=== PATIENT | female | born 1950 | race Caucasian/White ===

== ENCOUNTER 2016-10-20 09:00 | Inpatient (IN) | payer MEDICARE, OTHER ==
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
--- NOTE | ~2016-10-20 | HP ---
Unit #: [id number] #: [id number] Patient: ARACELIS ARIAS [id number] [place] [address] [id number] MR#: [id number] NAME: ARACELIS ARIAS. ROOM: P265 Age: 66 Sex: F Admission Date: 10/20/2016 : 1950 Attending Physician: Myke Dong M.D. Admitting Physician: Myke Dong M.D. Primary Care Physician: Primary Care Physician No HISTORY AND PHYSICAL HISTORY OF PRESENT ILLNESS Aracelis is a 66 year old admitted to [address] [place] [address] with psychotic behavior. She is a poor historian so her history is taken from her chart. She has had other admissions to this facility for the same. PAST MEDICAL HISTORY 1. Morbid obesity. 2. High blood pressure. 3. COPD. 4. Chronic pain. 5. History of glaucoma. PAST SURGICAL HISTORY Bilateral eyes. ALLERGIES No known drug allergies. SOCIAL HISTORY Smokes greater than 1 pack per day. Denies alcohol and illicit drug use. FAMILY HISTORY Medically noncontributory. REVIEW OF SYSTEMS She does not answer questions appropriately. There are no reports of nausea, vomiting or diarrhea. She has had no complaints of shortness of breath or chest pain. CURRENT MEDICATIONS 1. Flonase nasal spray. 2. Symbicort 2 puffs b.i.d. 3. Colace 100 mg b.i.d. 4. Nicorette gum p.r.n. 5. Milk of Magnesia p.r.n. 6. Maalox p.r.n. 7. Tylenol p.r.n. 8. Lasix 20 mg daily. 9. Norvasc 10 mg daily. 10. Baclofen 10 mg 1/2 tab t.i.d. p.r.n. 11. Gabapentin 300 mg daily. 12. Mobic 7.5 mg b.i.d. 13. Vitamin D3 2000 units daily. Unit #: [id number] #: [id number] Patient: ARACELIS ARIAS 14. Oxybutynin 5 mg daily. 15. Zyrtec 10 mg daily. PHYSICAL EXAMINATION GENERAL: Alert, morbidly obese, no apparent distress. VITAL SIGNS: Blood pressure 142/90, heart rate 80, respirations 16, temperature 98.6. WEIGHT: 186. HEIGHT: 5 feet 6 inches. SKIN: Warm and dry without rash or lesion. HEENT: Normocephalic. TMs not viewed. Oral and nasal passages clear. Conjunctivae clear. PERRLA. EOMs intact. NECK: Supple without lymphadenopathy or thyromegaly. HEART: Regular rate and rhythm without murmur. LUNGS: Clear. ABDOMEN: Soft, nontender. : Not done. EXTREMITIES: No evidence of cyanosis or clubbing. She has 1+ to 2+ edema bilateral lower extremities. NEUROLOGICAL: Unable to complete extended exam. She does move all extremities without focal deficit. Hand stretcher helper is equal. Gait not observed. IMPRESSION Psychiatric admission. RECOMMENDATIONS PSYCHIATRIC: Per psychiatrist. MEDICAL: 1. See no contraindications to participate in facility's activities. 2. Check BMP. MEDICAL PROGNOSIS Good. MEDICAL CONDITION Stable. Dictated by... Luiza Qiu P.A.-C. for Nirav Lux/jayshree TD: 10/20/2016 16:34 JOB #: [id number] Unit #: [id number] #: [id number] Patient: HUGOARACELIS J HISTORY AND PHYSICAL Page 1 of 1 X Luiza Qiu PA X HISTORY AND PHYSICAL
--- NOTE | ~2016-10-20 | PN ---
Unit #: [id number] #: [id number] Patient: ARACELIS ARIAS [id number] [facility] [address] [place] [address] [id number] MR#: [id number] NAME: ARACELIS ARIAS ROOM: P265 Age: 66 Sex: F Admission Date: 10/20/2016 : 1950 Attending Physician: Myke Dong M.D. Admitting Physician: Myke Dong M.D. Primary Care Physician: Primary Care Physician Reyna HASSAN PROGRESS NOTES DATE 10/22/2016 DISCUSSION The patient is significantly brighter and more calm today. She has received her Risperdal Consta injection and does seem improve though staff reports some ongoing periods of irritability and selective compliance with medication. I have spoken with the patient regarding importance of consistent medication compliance. Dictated by... Myke Dong M.D. CB/jayshree TD: 10/22/2016 17:18 JOB #: [id number] [facility] PROGRESS NOTES Page 1 of 1 X Myke Dong MD X PROGRESS NOTE
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
[~2016-10-20 09:00] MED LIST: BACLOFEN10 MG PO; DEPAKOTE250 MG PO; GABAPENTIN300 M2 PO; HYDROCHLOROTHIA25 MG PO; NORVASC10 MG PO; RISPERDAL3 MG PO
[2016-10-21 09:53] LABS: BASOPHIL# 0.1 X10e3 (0-0.3); BASOPHIL% 1.4 % (0-2.5); EOSINOPHIL# 0.1 X10e3 (0-0.7); EOSINOPHIL% 1.4 % (0.0-7.0); HEMATOCRIT 40.9 % (35.0-45.0); HEMOGLOBIN 13.1 gm/dL (12.0-16.0); LYMPHOCYTE# 3.1 X10e3 (1.0-3.5); LYMPHOCYTE% 37.2 % (17.0-45.0); MEAN CORPUSCULAR HEMOGLOBIN 29.1 PG (28-34); MEAN PLATELET VOLUME 9.7 FL (6.5-11.5); MONOCYTE# 0.7 X10e3 (0-1.0); MONOCYTE% 8.3 % (3.0-12.0); NEUTROPHIL# 4.4 X10e3 (1.5-7.1); NEUTROPHIL% 51.7 % (40-75); PLATELET COUNT 290 X10e3 (140-420); RED BLOOD COUNT 4.49 X10e (3.90-5.30); RED CELL DISTRIBUTION WIDTH 15.6 % (11.0-15.5); WHITE BLOOD COUNT 8.5 X10e3 (4.0-10.5)
[2016-10-21 09:59] LABS: DIFF IND NO
[2016-10-21 10:19] LABS: ALBUMIN SERUM 3.7 g/dL (3.5-5.0); BILIRUBIN,TOTAL 0.4 mg/dL (0.2-2.0); BUN/CREATININE RATIO 11.66; CALCIUM SERUM 9.4 mg/dL (8.4-10.2); CREATININE SERUM 0.6 mg/dL (0.6-1.4); GLOM FILT RATE Estimated 95.7 mL/min (>60); POTASSIUM 4.6 mmol/L (3.5-5.1); PROTEIN TOTAL SERUM 6.4 g/dL (6.0-8.3)
== END 2016-10-23 15:00 | disposition home or self-care (01) | DRG 885 ==
LOC: P2L 11:37
PROVIDERS: Specialist
DX: F31.10 Bipolar disorder, current episode manic without psychotic features, unspecified (principal); E66.01 Morbid (severe) obesity due to excess calories; J44.9 Chronic obstructive pulmonary disease, unspecified; I10 Essential (primary) hypertension; E55.9 Vitamin D deficiency, unspecified; N32.81 Overactive bladder; F17.210 Nicotine dependence, cigarettes, uncomplicated; H40.9 Unspecified glaucoma; G89.29 Other chronic pain
CPT/HCPCS: 80053; 80164; 82140; 85025

== ENCOUNTER 2017-01-16 14:58 | Emergency (ER) | payer MEDICARE, OTHER ==
[~2017-01-16] VITALS: Ht 167.6 cm; Wt 81.6 kg
== END 2017-01-16 17:00 | disposition home or self-care (01) ==
LOC: CED 14:58 → CFTX 14:58
DX: M25.561 Pain in right knee (principal); G89.29 Other chronic pain; E78.5 Hyperlipidemia, unspecified; I10 Essential (primary) hypertension; F17.210 Nicotine dependence, cigarettes, uncomplicated; Z79.899 Other long term (current) drug therapy; Z88.8 Allergy status to other drugs, medicaments and biological substances
CPT/HCPCS: 99283